=== PATIENT | male | born 1970 | race Native Hawaiian/Other Pacific Islander ===

== ENCOUNTER 2017-10-04 21:39 | Emergency (ER) | payer OTHER ==
[~2017-10-04] VITALS: Ht 177.8 cm; Wt 117.9 kg
[2017-10-04 23:05] LABS: PLATELET COUNT 257 K/uL (142-355)
[2017-10-04 23:43] VITALS: BP 192/99; TEMP 98
== END 2017-10-04 23:46 | disposition home or self-care (01) ==
LOC: ED 21:39
DX: R10.9 Unspecified abdominal pain (principal); K59.00 Constipation, unspecified; I10 Essential (primary) hypertension
CPT/HCPCS: 36415; 74022; 80053; 82150; 83690; 85027; 96374; 99284; J1885